=== PATIENT | male | born 1965 | race Caucasian/White ===

== ENCOUNTER 2020-04-12 15:15 | Emergency (ER) | payer MEDICARE, MEDICAID, SELFPAY ==
[2020-04-12 15:36] VITALS: BP 132/87; BP 140/90; PULSE 103; PULSE 95; RESP 18; TEMP 36.5; TEMP 36.6; O2SAT 93; O2SAT 96; BMI 41.5
--- NOTE | 2020-04-12 15:47 | ED.PSYCH ---
HPI - Psych General Chief Complaint: Psychiatric Symptoms <Amira Norris NP - Last Filed: 04/12/20 21:03> Stated Complaint: crisis <Amira Norris NP - Last Filed: 04/12/20 21:03> Time Seen by Provider: 04/12/20 15:35 <Amira Norris NP - Last Filed: 04/12/20 21:03> Source: patient <Amira Norris NP - Last Filed: 04/12/20 21:03> Mode of arrival: ambulatory <Amira Norris NP - Last Filed: 04/12/20 21:03> Limitations: no limitations <Amira Norris NP - Last Filed: 04/12/20 21:03> History of Present Illness HPI Narrative: 54-year-old male with a past medical history of anxiety, depression, bipolar disease here with complaints of feeling suicidal for the last 24 hours. He denies plan. Denies homicidal ideations. Denies hallucinations. Denies any substance use. He did drink 1 pt of vodka today but does not drink regularly. No physical complaints. He has been medication compliant. <Amira Norris NP - Last Filed: 04/12/20 21:03> MD complaint: suicidal ideation and feels depressed <Amira Norris NP - Last Filed: 04/12/20 21:03> Onset (ago): day(s) <Amira Norris NP - Last Filed: 04/12/20 21:03> Duration: constant <Amira Norris NP - Last Filed: 04/12/20 21:03> History of same: Yes <Amira Norris NP - Last Filed: 04/12/20 21:03> Relieving factors: none <Amira Norris NP - Last Filed: 04/12/20 21:03> Exacerbating factors: alcohol <Amira Norris NP - Last Filed: 04/12/20 21:03> Context: recent alcohol abuse <Amira Norris NP - Last Filed: 04/12/20 21:03> Associated psychiatric symptoms: depression and suicidal ideation <Amira Norris NP - Last Filed: 04/12/20 21:03> Associated symptoms: denies other symptoms <Amira Norris NP - Last Filed: 04/12/20 21:03> Treatments prior to arrival: none <Amira Norris NP - Last Filed: 04/12/20 21:03> If self harm: admits thoughts of self harm <Amira Norris NP - Last Filed: 04/12/20 21:03> Related Data Allergies/Adverse Reactions: Allergies Allergy/AdvReac Type Severity Reaction Status Date / Time prednisone Allergy Unknown UNKNOWN Verified 04/12/20 20:34 MED FOR BIPOLAR Allergy Unknown UNKNOWN Uncoded 03/12/20 15:00 <Amira Norris NP - Last Filed: 04/12/20 21:03> Review of Systems Review of Systems: Yes all other systems are reviewed and are negative <ULISES Kwok Last Filed: 04/12/20 21:03> Constitutional: Constitutional: Reports no additional constitutional complaints, Denies body ache(s), Denies chills, Denies fever(s), Denies headache(s) and Denies weakness <Amira Norris NP - Last Filed: 04/12/20 21:03> Eyes: Eyes: Reports no additional eye complaints and Denies change in vision <Amira Norris NP - Last Filed: 04/12/20 21:03> ENT: Reports system reviewed and no additional complaints, except as documented, Denies dizziness, Denies headache(s), Denies nasal congestion, Denies nasal discharge and Denies neck pain <Amira Norris NP - Last Filed: 04/12/20 21:03> Cardiovascular: Cardiovascular: Reports no additional cardiovascular complaints, Denies chest pain, Denies leg edema and Denies dyspnea <Amira Norris NP - Last Filed: 04/12/20 21:03> Respiratory: Respiratory: Reports no additional respiratory complaints, Denies cough and Denies dyspnea <Amira Norris NP - Last Filed: 04/12/20 21:03> Gastrointestinal: Gastrointestinal: Reports no additional gastrointestinal complaints, Denies abdominal pain, Denies diarrhea, Denies nausea and Denies vomiting <Amira Norris NP - Last Filed: 04/12/20 21:03> Genitourinary: Genitourinary: Denies urinary incontinence <Amira Norris NP - Last Filed: 04/12/20 21:03> Musculoskeletal: Musculoskeletal: Reports no additional musculoskeletal complaints, Denies back pain, Denies arthralgias, Denies joint swelling, Denies neck pain, Denies numbness and Denies tingling <Amira Norris NP - Last Filed: 04/12/20 21:03> Integumentary/Breasts: Skin/Breast: Reports system reviewed and no additional complaints, except as docu and Denies rash <Amira Norris NP - Last Filed: 04/12/20 21:03> Neurologic: Reports system reviewed and no additional complaints, except as documented, Denies Abnormal speech present, Denies dizziness, Denies headache(s), Denies numbness, Denies tingling and Denies weakness <Amira Norris NP - Last Filed: 04/12/20 21:03> Psychiatric: Psychiatric: Denies anxiety, Reports depression, Denies visual hallucinations, Denies hallucinations, Reports homicidal ideation and Denies suicidal ideation <Amira Norris NP - Last Filed: 04/12/20 21:03> PMFSH Past Medical History Attestation statement: The following information was validated with the patient. <Amira Norris NP - Last Filed: 04/12/20 21:03> Source: nursing notes reviewed <Amira Norris NP - Last Filed: 04/12/20 21:03> Medical History: Medical History (Updated 04/12/20 @ 19:27 by Amira Norris NP) Anxiety Bipolar disease, chronic Depression <Amira Norris NP - Last Filed: 04/12/20 21:03> Social History Social History: Social History Alcohol intake: current Alcohol intake frequency: a few times a month Alcohol type: hard liquor Smoking Status: Current every day smoker Smoked in Last 30 Days: Yes Use of substances other than those prescribed or required for medical reasons: No Advance Directives: No Advance Directives Information Provided: No <Amira Norris NP - Last Filed: 04/12/20 21:03> Physical Exam Vital Signs: Vital Signs: Vital Signs Temp Pulse Resp BP Pulse Ox 04/13/20 06:59 20 04/13/20 06:53 20 04/13/20 06:44 20 04/13/20 06:38 20 04/13/20 06:31 20 04/13/20 06:29 20 04/13/20 06:28 20 04/13/20 06:26 20 04/13/20 06:23 20 04/13/20 06:13 113 H 20 175/98 H 97 04/13/20 06:07 91 20 168/100 H 96 04/13/20 05:58 20 04/13/20 05:53 20 04/13/20 05:43 20 04/13/20 05:38 20 04/13/20 05:19 18 04/13/20 03:49 18 04/13/20 02:00 18 04/12/20 23:43 18 04/12/20 22:00 18 04/12/20 21:55 98.4 F 98 18 153/92 H 93 04/12/20 20:00 18 04/12/20 15:36 97.8 F 95 18 132/87 93 Body Mass Index 41.5 <Amira Norris NP - Last Filed: 04/12/20 21:03> Vital Signs: Vital Signs Temp Pulse Resp BP Pulse Ox 04/13/20 06:59 20 04/13/20 06:53 20 04/13/20 06:44 20 04/13/20 06:38 20 04/13/20 06:31 20 04/13/20 06:29 20 04/13/20 06:28 20 04/13/20 06:26 20 04/13/20 06:23 20 04/13/20 06:13 113 H 20 175/98 H 97 04/13/20 06:07 91 20 168/100 H 96 04/13/20 05:58 20 04/13/20 05:53 20 04/13/20 05:43 20 04/13/20 05:38 20 04/13/20 05:19 18 04/13/20 03:49 18 04/13/20 02:00 18 04/12/20 23:43 18 04/12/20 22:00 18 04/12/20 21:55 98.4 F 98 18 153/92 H 93 04/12/20 20:00 18 04/12/20 15:36 97.8 F 95 18 132/87 93 Body Mass Index 41.5 <Camila Morales DO - Last Filed: 04/13/20 07:07> Const: General: cooperative, healthy appearing, comfortable and no acute distress <Amira Norris NP - Last Filed: 04/12/20 21:03> Orientation/consciousness: patient oriented x3 <Amira Norris NP - Last Filed: 04/12/20 21:03> Limitations: no limitations <Amira Norris NP - Last Filed: 04/12/20 21:03> HENMT: Head: Yes normal to inspection <Amira Norris NP - Last Filed: 04/12/20 21:03> Ears: hearing grossly normal bilaterally <Amira Norris NP - Last Filed: 04/12/20 21:03> General nose exam: Normal external nose present <Amira Norris NP - Last Filed: 04/12/20 21:03> Face and sinus: Yes normal facial exam <Amira Norris NP - Last Filed: 04/12/20 21:03> Mouth: Normal oral and palatal mucosa present <Amira Norris NP - Last Filed: 04/12/20 21:03> Throat: Yes posterior oropharynx normal <Amira Norris NP - Last Filed: 04/12/20 21:03> Eyes: General: appearance normal, both eyes and all related structures <Amira Norris NP - Last Filed: 04/12/20 21:03> Pupils: Equal, round and reactive pupils present <Amira Norris NP - Last Filed: 04/12/20 21:03> Neck: Neck: Yes normal visual inspection <Amira Norris NP - Last Filed: 04/12/20 21:03> Chest: Chest palpation & inspection: normal inspection of the chest <Amira Norris NP - Last Filed: 04/12/20 21:03> Resp: Effort & Inspection: normal respiratory effort <Amira Norris NP - Last Filed: 04/12/20 21:03> Auscultation: clear to auscultation bilaterally <Amira Norris NP - Last Filed: 04/12/20 21:03> Cardio: Rate: regular rate <Amira Norris NP - Last Filed: 04/12/20 21:03> Rhythm: regular rhythm <Amira Norris NP - Last Filed: 04/12/20 21:03> Peripheral pulses: Peripheral pulses 2+ throughout <Amira Norris NP - Last Filed: 04/12/20 21:03> GI: Inspection: Yes normal to inspection <Amira Norris NP - Last Filed: 04/12/20 21:03> Palpation (GI): Soft to palpation and nontender <Amira Norris NP - Last Filed: 04/12/20 21:03> Auscultation: normal bowel sounds <Amira Norris NP - Last Filed: 04/12/20 21:03> Back/Spine/Pelvis: Thoracic/Lumbar Spine: thoracic and lumbar spine normal to inspection <Amira Norris NP - Last Filed: 04/12/20 21:03> Skin: General skin exam: no rashes or lesions noted <Amira Norris NP - Last Filed: 04/12/20 21:03> Neuro: General: patient oriented x3, no focal motor deficits and normal sensation to monofilament <Amira Norris NP - Last Filed: 04/12/20 21:03> Cranial nerves: Yes Equal, round and reactive pupils present <Amira Norris NP - Last Filed: 04/12/20 21:03> Cognition (Neuro): normal cognition <Amira Norris NP - Last Filed: 04/12/20 21:03> Speech: No Abnormal speech present <Amira Norris NP - Last Filed: 04/12/20 21:03> Gait exam (Neuro): Normal gait present <Amira Norris NP - Last Filed: 04/12/20 21:03> Motor exam (neuro): 5/5 motor strength present throughout <Amira Norris NP - Last Filed: 04/12/20 21:03> Extrem: General: Yes normal to inspection <Amira Norris NP - Last Filed: 04/12/20 21:03> Psych: Appearance: grossly normal <Amira Norris NP - Last Filed: 04/12/20 21:03> Mental Status: mental status grossly normal <Amira Norris NP - Last Filed: 04/12/20 21:03> Speech and movement: Normal speech and movement present <Amira Norris NP - Last Filed: 04/12/20 21:03> Affect: Blunted affect present <Amira Norris NP - Last Filed: 04/12/20 21:03> Attitude: cooperative <Amira Norris NP - Last Filed: 04/12/20 21:03> Thought process: Normal thought process present <Amira Norris NP - Last Filed: 04/12/20 21:03> Thought content: Suicidality present <Amira Norris NP - Last Filed: 04/12/20 21:03> Insight: Good insight present (Psych) <Amira Norris NP - Last Filed: 04/12/20 21:03> Judgement: Good judgement present (Psych) <Amira Norris NP - Last Filed: 04/12/20 21:03> Course Course Course Narrative: 54-year-old male here with suicidal thoughts with no plan. He does admit to drinking 1 pt of vodka today. No physical complaints. No concerns for acute ingestion or trauma. Will order drug screen, ethanol level and BHN evaluation. 1830-Patient became very anxious. He did receive a dose of oral Ativan however then he started banging his head against the wall and other self-harming behavior. He was unable to be redirected. Haldol and Ativan IM ordered. <Amira Norris NP - Last Filed: 04/12/20 21:03> MDM - Psych Restraints Face to Face Assessment: Face to Face Assessment: Current Situation: After assessment of the patient, a review of the pertinent medical record and a discussion with nursing staff, I feel the patient requires a restrain intervention. Reaction To: [] Medical Condition: [] Behavioral State: [] Continued Need: [] <Amira Norris NP - Last Filed: 04/12/20 21:03> Medical Records Attestation: I reviewed the patient's medical records. <Amira Norris NP - Last Filed: 04/12/20 21:03> Lab Data Attestation: I reviewed the patient's lab results. <Amira Norris NP - Last Filed: 04/12/20 21:03> Labs: Lab Results 04/12/20 04/12/20 Range/Units 19:40 19:40 Urine Opiates Screen Not Detected (Not Detect) Ur Barbiturates Screen Not Detected (Not Detect) Ur Phencyclidine Scrn Not Detected (Not Detect) Ur Amphetamines Screen Not Detected (Not Detect) U Benzodiazepines Scrn Not Detected (Not Detect) Urine Cocaine Screen POSITIVE H (Not Detect) U Marijuana (THC) Screen Not Detected (Not Detect) Ethyl Alcohol 28 mg/dL <Amira Norris NP - Last Filed: 04/12/20 21:03> Lab Results 04/12/20 04/12/20 Range/Units 19:40 19:40 Urine Opiates Screen Not Detected (Not Detect) Ur Barbiturates Screen Not Detected (Not Detect) Ur Phencyclidine Scrn Not Detected (Not Detect) Ur Amphetamines Screen Not Detected (Not Detect) U Benzodiazepines Scrn Not Detected (Not Detect) Urine Cocaine Screen POSITIVE H (Not Detect) U Marijuana (THC) Screen Not Detected (Not Detect) Ethyl Alcohol 28 mg/dL <Camila Morales DO - Last Filed: 04/13/20 07:07> Discharge Plan Discharge Clinical Impression: Bipolar disorder <Amira Norris NP - Last Filed: 04/12/20 21:03>
--- NOTE | 2020-04-12 16:13 | PC.NURSE ---
PT is resting in bed. Calm and cooperative. No complaints at this time.
[2020-04-12] MEDS: Acetaminophen 325 MG TABLET 650 MG PO (17:59)
[2020-04-12] MEDS: LORazepam 1 MG TABLET PO (18:00)
[2020-04-12] MEDS: Haloperidol Lactate 5 MG/ML VIAL IM (19:06)
[2020-04-12] MEDS: LORazepam 2 MG/ML VIAL IM (19:06)
[2020-04-12 20:00] VITALS: RESP 18
[2020-04-12 20:15] LABS: Ethanol 28 mg/dL
[2020-04-12 20:18] LABS: Amphetamine Screen Urine Not Detected (Not Detect); Barbiturates, Urine Not Detected (Not Detect); Benzodiazepines Screen Urine Not Detected (Not Detect); Cannabinoid Screen Urine Not Detected (Not Detect); Cocaine Screen Urine POSITIVE (Not Detect); Opiate Screen Urine Not Detected (Not Detect); Phencyclidine Screen Urine Not Detected (Not Detect)
[2020-04-12] MEDS: LORazepam 1 MG TABLET 2 MG PO (20:35)
[2020-04-12] MEDS: diphenhydrAMINE HCL 25 MG TABLET 50 MG PO (20:35)
[2020-04-12 21:55] VITALS: BP 153/92; PULSE 98; RESP 18; TEMP 36.9; O2SAT 93
[2020-04-12 22:00] VITALS: RESP 18
[2020-04-12 23:43] VITALS: RESP 18
--- NOTE | 2020-04-12 23:50 | PC.NURSE ---
Addendum entered by Myles Stiles RN 04/13/20 04:57: Unable to sleep well during night shift manager. Awaken intermittent, wandering the unit, and asking food/drink. Anxious the most of shift despite PRN ativan med. Will continue to monitor. Original Note: S/E: Report received from BOBBY Pal. EtOH and UA done in this shift. Pt asked for food and drink. Pt anxious despite of getting haldol, ativan in previous shift. Provider made aware of. Per STRIKE OFF MACHINE OPERATOR, pt was given Benadryl and Ativan po with some effect. NAD. Awaiting BHN eval. Will continue to monitor.
[2020-04-13] VITALS (27 sets, daily range): BP systolic 143–175; BP diastolic 80–104; PULSE 91–113; RESP 18–26; TEMP 36.3–36.5; O2SAT 92–97
--- NOTE | 2020-04-13 01:23 | MHC.PIE ---
P: Pt became anxious, yelling, and throw the water pitcher to staff member at 0045. Pt stated I have a lot of anxiety. Shut the f up b! I Security at bedside, and this RN redirected pt. E: Pt calm and requesting for food. Apologized to the staff member for behavior. BHN at bedside for primary eval.
[2020-04-13] MEDS: LORazepam 1 MG TABLET 2 MG PO ×2 (01:39→16:50)
[2020-04-13] MEDS: diphenhydrAMINE HCL 25 MG TABLET PO (01:39)
--- NOTE | 2020-04-13 01:45 | PC.NURSE ---
Pt will be placed on section 12 with inpatient bedsearch.
--- NOTE | 2020-04-13 01:57 | MHC.PIE ---
P: Pt bagging on the wall, yelling, and screaming. stating that feel very anxious and wants medication. I: Security at bedside to talk to him, and explaining the rule. Per provider, Ativan 2 mg po and Benadryl 25 mg po given at 0130. E: Pt sleeping at this time. Will continue to monitor.
--- NOTE | 2020-04-13 05:00 | PC.NURSE ---
Unable to get current medication list. Pt does not recall pharmacy name or med list. Will pass along to day shift RN to call pt's [facility] to get medication information. [facility] can be reached at [phone].
[2020-04-13] MEDS: diphenhydrAMINE HCL 50 MG/ML VIAL IM (05:40)
[2020-04-13] MEDS: Haloperidol Lactate 5 MG/ML VIAL IM (05:43)
[2020-04-13] MEDS: LORazepam 2 MG/ML VIAL IM (05:43)
--- NOTE | 2020-04-13 05:52 | PC.NURSE ---
Addendum entered by Myles Stiles RN 04/13/20 06:40: 4-Point restraint continued. Pt still yelling, screaming, and kicking. Spitting mask at bedside to be ready to use. 1:1 status maintained. Original Note: 0514: Pt came out of the room and requesting to leave. Explained to pt that he cannot leave d/t being held [id number]. Pt denied it. Made a copy of section 12 to patient and gave it. Pt wanted to have a pair of glass to read carefully. Pt admitted that he brought a pair of glass from home. From going through pt's belonging at [facility], a pair of glasses were not found. Pt asked this RN if i have a pair of glasses. This RN said, No. Pt started to escalate by punching at the glass door, and attempted jumping to the nursing station door 0524: First panic alarm rang. Security and ED staff (including MD) at bedside to assess pt. Pt wants to have anxiety medication to calm down his anxiety. Pt agreed to have IM med for anxiety med. made aware. 0530: MD asked this RN to verify pt's recent home med. Unable to get home med list. 0535: Pt escalated again and jumped on to one of the java security architect, and second panic alarm rang. 0538: 4-Point restraints applied by . at beside. Per 5:2, and 50 mg of Benadryl IM to be given. 0543: Med restraint done at this time. Pt placed on 1:1 status immediately. 0600: Pt yelling, and screaming asking for doctor. Will continue to monitor.
[2020-04-13] MEDS: Ziprasidone Mesylate 20 MG VIAL 10 MG IM (07:18)
--- NOTE | 2020-04-13 07:23 | PC.NURSE ---
Pt agitated, in restraints, diaphoretic, on arrival. Dr Morales in to evaluate. Pt medicated w/ geodon as ordered.
--- NOTE | 2020-04-13 07:47 | PC.NURSE ---
Pt sitting up, eating breakfast, resp unlabored.
--- NOTE | 2020-04-13 08:37 | PC.NURSE ---
pt resting, resp unlabored
--- NOTE | 2020-04-13 08:41 | PC.NURSE ---
pt resting, resp unlabored at 22. 1:[address] at this time.
--- NOTE | 2020-04-13 10:24 | PC.NURSE ---
Pt awake, eating snack, affect even. Pt eating a snack. pt aware that he has been accepted to [facility].
[2020-04-13 11:57] LABS: SARS COV2 PCR INHOUSE NEGATIVE (Negative)
--- NOTE | 2020-04-13 12:23 | PC.NURSE ---
Pt restless, very focused on food. pt cooperative w/ care at this time, accepted covid testing, ids aware that [facility] has accepted him, no concerns reported.
--- NOTE | 2020-04-13 13:21 | PC.NURSE ---
pt suddenly reported sudden loss of vision left eye: 'it's all black. it's like when I had an aneurism.' a mylene called, in to evaluate. pt 1:1 maintained. pt also reporting headache which began last night.
--- NOTE | 2020-04-13 13:22 | CT_ITS ---
EXAMINATION: CT angio head neck CLINICAL INFORMATION: Headache. Vision loss. History of aneurysm. COMPARISON: CT scan of the head 02/19/2018. TECHNIQUE: Auto Transmission Specialist images were obtained. A CT angiogram of the head and neck was performed in the arterial phase after the intravenous administration of 70 mL Omnipaque 350. Pre and delayed postcontrast images of the head were also obtained. MIP reconstructions were generated in multiple orientations at the acquisition workstation. Multiple three-dimensional surface rendered images and maximum intensity projection images were generated on a dedicated 3-D lab workstation. Arterial stenoses are measured in accordance with NASCET criteria or similar method if applicable. This CT examination was performed using dose optimization techniques as appropriate, including one or more of the following: Automated exposure control, iterative reconstruction, and adjustment of technique factors (mA and/or kVp) according to patient size (this includes techniques or standardized protocols for targeted exams where dose is matched to indication/reason for exam). Total exam dose-length product 2452 mGy-cm FINDINGS: Head: There is no acute intracranial hemorrhage. Postcontrast images reveal no abnormal mass or enhancement within the intracranial compartment. No intracranial mass effect or midline shift. No abnormal extra-axial collection. There is gliosis with associated ex vacuo enlargement of the left frontal horn. This finding has remained stable when compared to prior imaging from 02/19/2018. A few scattered nonspecific foci of hypoattenuation are also visualized within the periventricular white matter. Grossly no evidence of acute territorial infarct. The calvarium and skull base are intact. Mastoid air cells and middle ear cavities are well aerated. No active paranasal sinus disease. CT angiogram neck: The aortic arch apex is normal. Origins of the major aortic branches are widely patent. Common carotid arteries and carotid bifurcations are normal. No stenosis of the extracranial internal carotid arteries. The cervical segments of the vertebral arteries as well as their origins are patent. CT angiogram head: Intracranial internal carotid arteries are patent. There is a subtle contour abnormality along the lateral surface of the right cavernous internal carotid artery that may represent a shallow extradural aneurysm. Intracranial internal carotid arteries are otherwise normal. The intradural vertebral artery segments and basilar artery are normal. Anterior, middle, and posterior cerebral artery complexes are normal. No high-grade stenosis or proximal occlusion is visualized within the intracranial vessels. Other: Soft tissues of the neck including the thyroid gland are normal. Grossly no pathologically enlarged cervical lymph nodes. There is multilevel degenerative spondylosis of the cervical spine IMPRESSION: Stable examination with gliosis and ex vacuo enlargement of the left frontal horn. Grossly no evidence of acute territorial infarct or hemorrhage. No abnormal intracranial mass or enhancement. There is no stenosis of the cervical carotid or vertebral arteries. No high-grade stenosis or proximal occlusion is visualized within the intracranial vessels. 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
--- NOTE | 2020-04-13 13:28 | PC.NURSE ---
pt perrla, grasp equal, no facial droop. pt clarified statement: loss of vision occurred 2009, pt states that when he was walking, the ground started shifting. pt reports that this was what happened to him when he had his first aneurism and that he is 'nervous.'
--- NOTE | 2020-04-13 13:47 | PC.NURSE ---
Attempted IV access- unable to obtain. agriculture research director aware, pt to be moved to main ED when bed is available. Pt aware.
--- NOTE | 2020-04-13 13:55 | PC.NURSE ---
pt awaiting transfer to main ED
--- NOTE | 2020-04-13 14:02 | PC.NURSE ---
pt transferred to main ED, report given to pedro luis Andrea
[2020-04-13 14:54] LABS: MANUAL DIFF FLAG NO
--- NOTE | 2020-04-13 14:54 | PC.NURSE ---
Pt moved to room 8 in main ED, pt observer maintained. Pt very anxious and needs freuqent reminders of plan. Pt is difficult to ssess d/t anxiousness and with every assessment pt becomes agressive stating i dont know whats taking so long cant we just get this done Pt did become agitated, ripping off desk monitor and taking off [place]. pt reassured with some changes. pt was diccicuMatt gotti Rn able to obtain 20g to right ac via ultrasound guided
[2020-04-13 14:56] LABS: Basophils Absolute Auto 0.1 X10*3/uL (0.0-0.2); Basophils Percent Auto 0.5 % (0-2); Eosinophils Absolute Auto 0.2 X10*3/uL (0.0-0.4); Eosinophils Percent Auto 1.5 % (0-4); Hematocrit 42.6 % (42-52); Hemoglobin 14.5 g/dl (14.0-18.0); Imm Gran Abs Auto 0.05 X10*3/uL (0.00-0.03); Imm Gran Pct Auto 0.4 % (0.0-0.4); Lymphocytes Absolute Auto 2.4 X10*3/uL (1.2-4.9); Lymphocytes Percent Auto 20.6 % (20-40); Mean Corpuscular Hemoglobin 29.2 pg (27.0-33.0); Mean Corpuscular Volume 85.7 fL (80-98); Mean Platelet Volume 9.1 fL (9.4-12.4); Monocytes Absolute Auto 0.9 X10*3/uL (0.1-1.2); Monocytes Percent Auto 7.8 % (2-11); Neutrophils Percent Auto 69.2 % (45-73); Platelet Count 312 X10*3/uL (160-400); Red Blood Count 4.97 X10*6/uL (4.60-5.80); Red Cell Distribution Width 13.2 % (11.0-16.0); White Blood Count 11.5 X10*3/uL (4.8-10.8)
[2020-04-13 15:02] LABS: Prothrombin Time 11.8 SEC (10.8-13.0)
[2020-04-13 15:04] LABS: Partial Thromboplastin Time 33.1 SEC (24.1-38.0)
--- NOTE | 2020-04-13 15:18 | PC.NURSE ---
Pt pulled out IV, reinserted by Matt Gibson, awaiting lab results and CTA
[2020-04-13 15:24] LABS: Anion Gap 14 (12-20); Blood Urea Nitrogen 20 mg/dL (9-16); Calcium 10.3 mg/dL (8.4-10.2); Carbon Dioxide 30 mmol/L (22-29); Chloride 99 mmol/L (96-108); Creatinine Clr Calc Pharmacy 81.4; Estimated Glomerular Filt Rate > 60; Glucose Random 103 mg/dL (60-115); Potassium 4.3 mmol/l (3.3-5.1); Sodium 139 mmol/L (135-145)
[2020-04-13] MEDS: cloNIDine HCL 0.1 MG TABLET PO (15:25)
--- NOTE | 2020-04-13 15:26 | PC.NURSE ---
Clonidine given for persistent anxiety. pt continues to need frequent reminders on plan. No unilateral weakness noted but pt continues to reports headache to right jehovah's witness region, left pupil sluggish
--- NOTE | 2020-04-13 15:49 | PC.NURSE ---
off unit to ct scan with security and pt observer
[2020-04-13] MEDS: iohexoL 350 MG/ML 100 ML INFUS..BTL IV (16:03)
--- NOTE | 2020-04-13 16:54 | PC.NURSE ---
Pt became aggressive towards pt observer and Angelica RN in main ed, able to deescalate pt however pt continues to need frequent reminders on plan and requesting to go home despite multiple attempts to explain plan to pt. Ativan 2mg po given as ordered. awaiting Dr Holliday to call back, when cleared pt will return back to pod
--- NOTE | 2020-04-13 17:41 | PC.NURSE ---
Pt returned to pod. [facility] Sewell called- spoke w/ charge weigher. Tonio to call when Covid results returned. Covid results faxed to tonio. awaiting call to give rn to rn report.
--- NOTE | 2020-04-13 18:11 | PC.NURSE ---
Pt returned to the pod without issue. Restless. Awaiting 2344 admission to [facility]
--- NOTE | 2020-04-13 18:47 | ECG_ITS ---
Test Reason : ADMISSION Blood Pressure : / mmHG Vent. Rate : 093 BPM Atrial Rate : 093 BPM P-R Int : 130 ms QRS Dur : 090 ms QT Int : 352 ms P-R-T Axes : 061 -36 047 degrees QTc Int : 437 ms Normal sinus rhythm Left axis deviation Pulmonary disease pattern Abnormal ECG When compared with ECG of 16-FEB-2018 14:35, Vent. rate has increased BY 31 BPM Referred By: Rikki Hill Electronically Signed By:RANDELL MUSE MD
[2020-04-13] MEDS: HaloperidoL 5 MG TABLET PO (19:10)
--- NOTE | 2020-04-13 20:14 | PC.NURSE ---
Pt awaiting transfer to [place], restless, anxious
[2020-04-13] MEDS: Gabapentin 600 MG TABLET PO (21:05)
[2020-04-13] MEDS: risperiDONE 2 MG TABLET PO (21:05)
[2020-04-13] MEDS: Atorvastatin Calcium 40 MG TABLET PO (21:05)
[2020-04-13] MEDS: OXcarbazepine 300 MG TABLET 1200 MG PO (21:06)
[2020-04-13] MEDS: Albuterol/Iprat 2.5/0.5MG 3 ML AMPUL.NEB INHALE (21:36)
== END 2020-04-13 22:55 ==
PROVIDERS: Nurse Practitioner Family; Physician Assistant; Emergency Provider Emergency Medicine; PCP Internal Medicine
DX: F31.9 Bipolar disorder, unspecified (principal); R45.851 Suicidal ideations; R51.9 Headache, unspecified; Z20.828 Contact with and (suspected) exposure to other viral communicable diseases; F10.10 Alcohol abuse, uncomplicated; Y90.1 Blood alcohol level of 20-39 mg/100 ml; F14.10 Cocaine abuse, uncomplicated; F41.9 Anxiety disorder, unspecified; F32.9 Major depressive disorder, single episode, unspecified; F17.200 Nicotine dependence, unspecified, uncomplicated; Z79.899 Other long term (current) drug therapy; Z86.79 Personal history of other diseases of the circulatory system
CPT/HCPCS: 36415; 70496; 70498; 80048; 80307; 80320; 85025; 85610; 85730; 87635; 93005; 96372; 99285; J3486; Q0163